=== PATIENT | male | born 1965 | race Caucasian/White ===

== ENCOUNTER 2018-02-01 10:27 | Outpatient (REF) | payer BC, SELFPAY ==
[2018-02-01 19:45] LABS: HCT 40.2 % (40.0-50.0); HGB 13.7 g/dL (13.5-17.5); Mean Corp. HGB Concentration 34.1 g/dL (32.0-36.0); Mean Corpuscular Volume 85.2 fL (80-95); Mean Platelet Volume 10.7 fL (8.0-11.0); Platelet Count 321 x1000/uL (130-400); RBC 4.72 m/cumm (4.50-6.00); RBC Distribution Width 13.5 % (11.8-14.1); White Blood Cell Count 8.13 k/cumm (4.4-10.8)
[2018-02-01 20:06] LABS: ALT 22 U/L (12-78); AST 17 U/L (15-37); Albumin 4.1 g/dL (3.4-5.0); Alkaline Phosphatase 103 U/L (46-116); Anion Gap 7.4 mmol/L (3-11); BUN 41 mg/dL (7-18); Bilirubin, Total 0.4 mg/dL (0.2-1.0); CO2 27.6 mmol/L (21.0-32.0); CREATININE 1.33 mg/dL (0.70-1.30); Calcium 9.2 mg/dL (8.5-10.1); Chloride 100 mmol/L (98-107); Cholesterol 156 mg/dL (50-200); Estimated GFR 56.24 (mL/min/1.73m2); Ferritin 249 ng/mL (8-388); Glucose 97 mg/dL (70-100); HDL Cholesterol 38 mg/dL (40-60); LDL CHOLESTEROL 102 mg/dL (<100); Potassium 4.2 mmol/L (3.5-5.1); Sodium 135 mmol/L (136-145); Total Protein 7.5 g/dL (6.4-8.2); Triglyceride 96 mg/dL (30-150)
[2018-02-01 20:08] LABS: Hemoglobin A1C 6.2 % (4.5-6.2)
== END 2018-02-01 10:47 ==
LOC: NCHCN 10:27
PROVIDERS: PCP Family Medicine; Visit Provider Nurse Practitioner Family
DX: Z00.00 Encounter for general adult medical examination without abnormal findings (principal); R73.03 Prediabetes; I10 Essential (primary) hypertension; E78.5 Hyperlipidemia, unspecified; Z13.0 Encounter for screening for diseases of the blood and blood-forming organs and certain disorders involving the immune mechanism; E66.9 Obesity, unspecified
CPT/HCPCS: 80053; 80061; 83721; 85027; 82728; 83036

== ENCOUNTER 2018-11-07 09:58 | Outpatient (REF) | payer BC, SELFPAY ==
[2018-11-07 21:47] LABS: ALT 29 U/L (12-78); AST 14 U/L (15-37); Alkaline Phosphatase 92 U/L (46-116); Anion Gap 8.3 mmol/L (3-11); BUN 20 mg/dL (7-18); Bilirubin, Total 0.4 mg/dL (0.2-1.0); CO2 27.7 mmol/L (21.0-32.0); CREATININE 0.73 mg/dL (0.70-1.30); Calcium 9.4 mg/dL (8.5-10.1); Calculated LDL 105; Chloride 99 mmol/L (98-107); Cholesterol 160 mg/dL (50-200); Glucose 98 mg/dL (70-100); HDL Cholesterol 41 mg/dL (40-60); Hemoglobin A1C 6.2 % (4.5-6.2); Potassium 4.5 mmol/L (3.5-5.1); Sodium 135 mmol/L (136-145); Total Protein 7.3 g/dL (6.4-8.2); Triglyceride 73 mg/dL (30-150)
== END 2018-11-07 10:18 ==
LOC: NCHCN 09:58
PROVIDERS: PCP Family Medicine; Visit Provider Nurse Practitioner Family
DX: R73.03 Prediabetes (principal); I10 Essential (primary) hypertension; E78.5 Hyperlipidemia, unspecified
CPT/HCPCS: 80053; 80061; 83721; 83036

== ENCOUNTER 2019-03-27 09:18 | Outpatient (REF) | payer BC, SELFPAY ==
[2019-03-27 20:49] LABS: Anion Gap 9.9 mmol/L (3-11); BUN 14 mg/dL (7-18); CO2 31.1 mmol/L (21.0-32.0); CREATININE 0.78 mg/dL (0.70-1.30); Calcium 9.8 mg/dL (8.5-10.1); Chloride 103 mmol/L (98-107); Glucose 105 mg/dL (70-100); Potassium 3.4 mmol/L (3.5-5.1); Sodium 144 mmol/L (136-145)
== END 2019-03-27 09:38 ==
LOC: NCHCN 09:18
PROVIDERS: PCP Family Medicine; Visit Provider Nurse Practitioner Family
DX: I10 Essential (primary) hypertension (principal); R73.03 Prediabetes; R06.81 Apnea, not elsewhere classified; M25.511 Pain in right shoulder
CPT/HCPCS: 80048

== ENCOUNTER 2020-03-22 11:01 | Outpatient (REF) | payer BC, SELFPAY ==
[2020-03-22 21:23] LABS: Anion Gap 7.7 mmol/L (3-11); BUN 17 mg/dL (7-18); CO2 30.3 mmol/L (21.0-32.0); CREATININE 0.84 mg/dL (0.70-1.30); Calcium 9.8 mg/dL (8.5-10.1); Chloride 102 mmol/L (98-107); Glucose 122 mg/dL (74-106); Potassium 3.6 mmol/L (3.5-5.1); Sodium 140 mmol/L (136-145)
[2020-03-22 21:32] LABS: Hemoglobin A1C 6.1 % (<5.7)
[2020-03-24 10:23] LABS: Hepatitis C Ab w Rflx HCV PCR Negative (Negative)
== END 2020-03-22 11:21 ==
LOC: NCHCN 11:01
PROVIDERS: PCP Family Medicine; Visit Provider Nurse Practitioner Family
DX: M25.511 Pain in right shoulder (principal); R73.03 Prediabetes; I10 Essential (primary) hypertension; E66.9 Obesity, unspecified; Z11.59 Encounter for screening for other viral diseases
CPT/HCPCS: 80048; 86803; 83036

== ENCOUNTER 2021-01-11 14:36 | Outpatient (REF) | payer BC, SELFPAY ==
[2021-01-13 11:32] LABS: COVID-19 RT-PCR UVMMC Result Negative (Negative)
== END 2021-01-11 14:37 | disposition home or self-care (01) ==
LOC: NCHCN 14:36
PROVIDERS: PCP Family Medicine; Visit Provider Nurse Practitioner Family
DX: Z20.822 Contact with and (suspected) exposure to COVID-19 (principal); J02.9 Acute pharyngitis, unspecified
CPT/HCPCS: U0003

== ENCOUNTER 2021-01-14 09:54 | Outpatient (REF) | payer BC, SELFPAY ==
[2021-01-14 16:45] LABS: Anion Gap 9.6 mmol/L (3-11); BUN 27 mg/dL (7-18); CO2 28.4 mmol/L (21.0-32.0); CREATININE 1.1 mg/dL (0.70-1.30); Calcium 9.5 mg/dL (8.5-10.1); Chloride 105 mmol/L (98-107); Glucose 125 mg/dL (74-106); Magnesium 1.9 mg/dL (1.8-2.4); Potassium 4.2 mmol/L (3.5-5.1); Sodium 143 mmol/L (136-145); Vitamin B12 462 pg/mL (193-986)
[2021-01-14 16:46] LABS: Hemoglobin A1C 6.2 % (<5.7)
== END 2021-01-14 09:55 | disposition home or self-care (01) ==
LOC: NCHCN 09:54
PROVIDERS: PCP Family Medicine; Visit Provider Nurse Practitioner Family
DX: R73.03 Prediabetes (principal); I10 Essential (primary) hypertension; K21.9 Gastro-esophageal reflux disease without esophagitis; Z51.81 Encounter for therapeutic drug level monitoring
CPT/HCPCS: 80048; 82607; 83036; 83735

== ENCOUNTER 2022-01-16 15:42 | Outpatient (REF) | payer BC, SELFPAY ==
[2022-01-16 17:03] LABS: Abs Immature Grans 0.02 10^3/uL (0.0-0.06); Absolute Basophil Count 0.05 10^3/uL (0.0-0.2); Absolute Eosinophil Count 0.04 10^3/uL (0.0-0.7); Absolute Lymphocyte Count 2.58 10^3/uL (1.2-3.4); Absolute Monocyte Count 0.68 10^3/uL (0.1-0.8); Absolute Neutrophil Count 3.73 10^3/uL (1.2-6.7); Basophils % 0.7; Eosinophils % 0.6; HGB 14.9 g/dL (13.5-17.5); Immature Grans % 0.3; Lymphocytes % 36.3; MCH 28.6 pg (27.0-33.0); MCHC 32.4 % (32.0-36.0); MCV 88 fL (80-95); MPV 10.2 fL (8.0-11.0); Monocytes % 9.6; Neutrophils % 52.5; Platelet Count 271 10^3/uL (130-400); RBC 5.21 10^6/uL (4.36-5.78); RDW 14.6 % (11.8-14.1); RDW-SD 46.9 fL
[2022-01-16 17:10] LABS: ALT 28 U/L (16-63); AST 16 U/L (15-37); Albumin 3.8 g/dL (3.4-5.0); Alkaline Phosphatase 74 U/L (46-116); Anion Gap 6.5 mmol/L (3-11); BUN 11 mg/dL (7-18); Bilirubin, Total 0.3 mg/dL (0.2-1.0); CO2 32.5 mmol/L (21.0-32.0); Chloride 105 mmol/L (98-107); Glucose 104 mg/dL (74-106); Potassium 3.6 mmol/L (3.5-5.1); Sodium 144 mmol/L (136-145); Total Protein 7.4 g/dL (6.4-8.2)
== END 2022-01-16 15:43 | disposition home or self-care (01) ==
LOC: NCHCN 15:42
PROVIDERS: PCP Family Medicine; Visit Provider Nurse Practitioner Family
DX: I10 Essential (primary) hypertension (principal); R73.03 Prediabetes; E88.81 Metabolic syndrome and other insulin resistance; Z13.0 Encounter for screening for diseases of the blood and blood-forming organs and certain disorders involving the immune mechanism
CPT/HCPCS: 80053; 83036; 85025

== ENCOUNTER 2023-01-12 08:40 | Outpatient (REF) | payer BC, SELFPAY ==
[2023-01-12 16:21] LABS: Hemoglobin A1C 5.9 % (<5.7)
[2023-01-12 16:39] LABS: BUN 16 mg/dL (7-18); CREATININE 0.8 mg/dL (0.70-1.30); Calcium 9.7 mg/dL (8.5-10.1); Chloride 104 mmol/L (98-107); Estimated GFR 102.58 (mL/min/1.73m2); Glucose 113 mg/dL (74-106); Potassium 3.1 mmol/L (3.5-5.1); Sodium 143 mmol/L (136-145)
== END 2023-01-12 08:41 | disposition home or self-care (01) ==
LOC: NCHCN 08:40
PROVIDERS: PCP Family Medicine; Visit Provider Nurse Practitioner Family
DX: I10 Essential (primary) hypertension (principal); R73.03 Prediabetes
CPT/HCPCS: 80048; 83036

== ENCOUNTER 2023-09-27 14:51 | Outpatient (REF) | payer BC, SELFPAY ==
[2023-09-27 15:08] LABS: Anion Gap 8.8 mmol/L (3-11); BUN 14 mg/dL (7-18); CO2 30.2 mmol/L (21.0-32.0); CREATININE 0.8 mg/dL (0.70-1.30); Calcium 9.6 mg/dL (8.5-10.1); Chloride 105 mmol/L (98-107); Estimated GFR 102.58 (mL/min/1.73m2); Glucose 110 mg/dL (74-106); Potassium 3.8 mmol/L (3.5-5.1); Sodium 144 mmol/L (136-145); TSH 1.17 uIU/Ml (0.36-3.74)
[2023-09-27 15:17] LABS: Hemoglobin A1C 6.1 % (<5.7)
== END 2023-09-27 14:52 | disposition home or self-care (01) ==
LOC: NCHCN 14:51
PROVIDERS: PCP Family Medicine; Visit Provider Nurse Practitioner Family
DX: Z13.1 Encounter for screening for diabetes mellitus (principal); I10 Essential (primary) hypertension; Z13.29 Encounter for screening for other suspected endocrine disorder
CPT/HCPCS: 80048; 83036; 84443

== ENCOUNTER 2024-09-29 12:18 | Outpatient (REF) | payer BC, SELFPAY ==
[2024-09-29 16:02] LABS: Anion Gap 5.3 mmol/L (3-11); BUN 19 mg/dL (7-18); CO2 32.7 mmol/L (21.0-32.0); CREATININE 0.8 mg/dL (0.70-1.30); Calcium 9.7 mg/dL (8.5-10.1); Chloride 105 mmol/L (98-107); Estimated GFR 101.95 (mL/min/1.73m2); Glucose 106 mg/dL (74-106); Potassium 4.3 mmol/L (3.5-5.1); Sodium 143 mmol/L (136-145)
[2024-09-29 16:05] LABS: Hemoglobin A1C 6.1 % (<5.7)
== END 2024-09-29 12:19 | disposition home or self-care (01) ==
LOC: NCHCN 12:18
PROVIDERS: PCP Family Medicine; Visit Provider Nurse Practitioner Family
DX: R73.03 Prediabetes (principal); I10 Essential (primary) hypertension
CPT/HCPCS: 80048; 83036

== ENCOUNTER 2024-12-15 17:52 | Outpatient (REF) | payer BC, SELFPAY ==
[2024-12-15 21:59] LABS: HCT 44.4 % (40.0-50.0); HGB 15.2 g/dL (13.5-17.5); MCH 29.1 pg (27.0-33.0); MCHC 34.2 % (32.0-36.0); MCV 85 fL (80-95); MPV 10.2 fL (8.0-11.0); Platelet Count 312 10^3/uL (130-400); RBC 5.23 10^6/uL (4.36-5.78); RDW 13.0 % (11.8-14.1); RDW-SD 40.1 fL; WBC 9.23 10^3/uL (4.4-10.8)
[2024-12-15 22:05] LABS: Anion Gap 9.7 mmol/L (3-11); BUN 14 mg/dL (7-18); CO2 30.3 mmol/L (21.0-32.0); Calcium 9.9 mg/dL (8.5-10.1); Chloride 100 mmol/L (98-107); Estimated GFR 101.95 (mL/min/1.73m2); Glucose 90 mg/dL (74-106); Potassium 3.4 mmol/L (3.5-5.1); Sodium 140 mmol/L (136-145)
[2024-12-15 22:21] LABS: Hemoglobin A1C 6.1 % (<5.7)
== END 2024-12-15 17:53 | disposition home or self-care (01) ==
LOC: NCHCN 17:52
PROVIDERS: PCP Family Medicine; Visit Provider Family Medicine
DX: Z01.818 Encounter for other preprocedural examination (principal); I10 Essential (primary) hypertension; R73.03 Prediabetes
CPT/HCPCS: 80048; 85027; 83036